=== PATIENT | male | born 1970 | race Two or more races ===

== ENCOUNTER 2023-09-03 14:15 | Inpatient (IN) | payer OTHER ==
[2023-09-03 15:17] VITALS: BMI 25.1
[2023-09-03] MEDS ORDERED: guaiFENesin 600 MG TABLET.ER (FP) PO PRN (16:35)
[2023-09-03] MEDS ORDERED: MAGNESIUM HYDROX 2400MG/30ML ORAL SUSPENSION 30 ML CUP PO PRN (16:35)
[2023-09-03] MEDS ORDERED: P-EPHED 60MG/TRIPROLIDI 2.5MG TABLET PO PRN (16:35)
[2023-09-03] MEDS ORDERED: BENZOCAINE/MENTHOL (CHLORASEPTIC ) LOZENGE MM PRN (16:35)
[2023-09-03] MEDS ORDERED: DICYCLOMINE HCL 10 MG CAPSULE PO PRN (16:35)
[2023-09-03] MEDS ORDERED: IBUPROFEN 600 MG TABLET (FP) PO PRN (16:35)
[2023-09-03] MEDS ORDERED: LOPERAMIDE HCL 2 MG CAPSULE PO PRN (16:35)
[2023-09-03] MEDS ORDERED: hydrOXYzine PAMOATE 25 MG CAPSULE (FP) PO PRN (16:35)
[2023-09-03] MEDS ORDERED: BENZONATATE 200 MG CAPSULE PO PRN (16:35)
[2023-09-03] MEDS ORDERED: POLYETHYLENE GLYCOL (HEALTHYLAX) 3350 17 GM PACKET PO PRN (16:35)
[2023-09-03] MEDS ORDERED: ONDANSETRON *ODT* 4 MG TABLET SL PRN (16:35)
[2023-09-03] MEDS ORDERED: IBUPROFEN 400 MG TABLET (FP) PO PRN (16:35)
[2023-09-03] MEDS ORDERED: BISMUTH SUBSALICYLATE 524 MG/30 ML PO PRN (16:35)
[2023-09-03] MEDS ORDERED: ACETAMINOPHEN 325 MG TABLET (FP) PO PRN (16:35)
[2023-09-03] MEDS ORDERED: METHOCARBAMOL 500 MG TABLET PO PRN (16:35)
[2023-09-03] MEDS ORDERED: NICOTINE POLACRILEX 2 MG LOZENGE BC PRN (16:35)
[2023-09-03] MEDS ORDERED: MAG HYDROX/AL HYDROX/SIMETH 30 ML UNIT-DOSE CUP PO PRN (16:35)
[2023-09-03] MEDS: MELATONIN 5 MG TABLETS PO SCH (22:30)
[2023-09-03] MEDS: levETIRAcetam 500 MG TABLET (FP) PO SCH (22:30)
[2023-09-03] MEDS: THIAMINE 100 MG TABLET PO SCH (22:30)
[2023-09-04] MEDS ORDERED: diazePAM 5 MG TABLET PO PRN (09:40)
[2023-09-04] MEDS: FOLIC ACID 1 MG TABLET (FP) PO SCH (10:06)
[2023-09-04] MEDS: PRENATAL VITAMINS W/ FOLIC ACID TABLET (FP) PO SCH (10:06)
[2023-09-04] MEDS: LOSARTAN POTASSIUM 50 MG TABLET PO SCH (10:07)
[2023-09-04] MEDS: PATIENT'S OWN MEDICATION (NON-FORMULARY) (Dapagliflozin Propanediol [Farxiga] 5 MG Tablet) PO SCH (10:14)
[2023-09-04] MEDS: EPLERENONE 25 MG TABLET PO SCH (10:14)
[2023-09-04] MEDS: diazePAM 5 MG TABLET PO SCH (10:48)
[2023-09-04 11:54] LABS: POTASSIUM 4.3 mmol/L (3.5-5.1)
[2023-09-04 12:01] LABS: CREATININE 0.7 mg/dL (0.55-1.3)
[2023-09-04 12:03] LABS: ALBUMIN 4.4 g/dl (3.4-5.0); BILIRUBIN,TOTAL 0.6 mg/dL (0.2-1); TOT PROT 7.7 g/dl (6.4-8.2)
[2023-09-04 12:05] LABS: CALCIUM 9.8 mg/dL (8.5-10.1)
[2023-09-04 12:08] LABS: HEMATOCRIT 41.2 % (35.4-49); MCH 33.3 pg (25.7-33.7); MEAN CELL VOLUME 98.2 fl (80-96); MEAN PLT VOLUME 9.5 fl (7.5-11.1); PLATELET COUNT 217 10^3/uL (134-434); RDW 14.9 % (11.9-15.9); WHITE BLOOD COUNT 4.5 K/mm3 (4.0-10.0)
[2023-09-04] MEDS ORDERED: ESCITALOPRAM OXALATE 10 MG TABLET ONE (12:19)
[2023-09-04] MEDS: ESCITALOPRAM OXALATE 20 MG TABLET PO SCH (12:23)
[2023-09-04] MEDS: NICOTINE POLACRILEX 2 MG GUM BUC PRN (14:58)
[2023-09-04] MEDS: NICOTINE 21 MG/24 HOURS TOPICAL PATCH TD SCH (15:37)
[2023-09-04] MEDS: MIRTAZAPINE 15 MG TABLET (FP) PO SCH (22:55)
[2023-09-04] MEDS: risperiDONE 2 MG TABLET PO SCH (22:55)
[2023-09-05] MEDS ORDERED: ESCITALOPRAM OXALATE 10 MG TABLET ONE (09:59)
[2023-09-06] MEDS: diazePAM 5 MG TABLET PO SCH (05:25)
[2023-09-06] MEDS ORDERED: ESCITALOPRAM OXALATE 10 MG TABLET ONE (09:08)
[2023-09-06] MEDS: NICOTINE POLACRILEX 2 MG GUM BC PRN (09:19)
[2023-09-07] MEDS: diazePAM 5 MG TABLET PO SCH (05:14)
[2023-09-07 06:04] VITALS: RESP 16
[2023-09-07 08:48] VITALS: BP 110/67; PULSE 80; TEMP 98.9
[2023-09-07] MEDS ORDERED: ESCITALOPRAM OXALATE 10 MG TABLET ONE (09:09)
[2023-09-08] MEDS ORDERED: diazePAM 5 MG TABLET PO ONE (06:00)
== END 2023-09-07 10:36 | disposition home or self-care (01) | DRG 897 ==
LOC: YASAS 14:15 → Y6N 19:16
PROVIDERS: ADMIT Allergy & Immunology; ATTEND Surgery
PROC: HZ2ZZZZ Detoxification Services for Substance Abuse Treatment (ICD-10-PCS; principal; 2023-09-03)
DX: F10.230 Alcohol dependence with withdrawal, uncomplicated (principal); F17.210 Nicotine dependence, cigarettes, uncomplicated; F10.282 Alcohol dependence with alcohol-induced sleep disorder; F32.9 Major depressive disorder, single episode, unspecified; I11.0 Hypertensive heart disease with heart failure; I50.9 Heart failure, unspecified; E11.9 Type 2 diabetes mellitus without complications; Z79.84 Long term (current) use of oral hypoglycemic drugs
CPT/HCPCS: 36415; 80053; 80305; 80307; 82962; 83036; 85027; 86780; 93005; 93010